=== PATIENT | male | born 1995 | race Caucasian/White ===

== ENCOUNTER 2016-08-28 23:26 | Emergency (ER) | payer OTHER, BC ==
[~2016-08-28] VITALS: Ht 177.8 cm; Wt 100.5 kg
[2016-08-28 23:30] VITALS: Ht 177.8 cm; Wt 100.5 kg
[2016-08-28] MEDS ORDERED: SOD CHLORIDE 0.9% 1,000 ML IV STA (23:56)
[2016-08-28] MEDS ORDERED: ONDANSETRON 4 MG INJ IV STA (23:56)
[2016-08-28] MEDS ORDERED: morphine 4 MG/ML VIAL IV STA (23:56)
[2016-08-29] MEDS ORDERED: MAGN296S40 PO (00:10)
--- NOTE | 2016-08-29 00:11 | ERD ---
ER Documentation Chief Complaint Date/Time DATE: 08/29/16 TIME: 00:08 Chief Complaint constipation x 4 days, rectal pain HPI 21-year-old male presents here in emergency department for complaints of constipation for the last 5 days, patient has had rectal pain for the last one month after falling in the coccyx area, states that he did not mind it, continues to have the pain, in the last 5 days, pain is worse, has been constipated, has not had a bowel movement for the last 4 days, patient was seen at another emergency department, had x-rays of the coccyx done, was told to not have any fracture. Patient was given medication, magnesium citrate to help with symptoms but it did not help. Patient's complaining of rectal pain throbbing pain, 8/10 scale, is worse upon sitting down and touching the area. Patient denies any fever or chills. Patient denies any discharge coming from the area. Patient feels a bump in the rectal area. ROS All systems reviewed and are negative except as per history of present illness. Medications Home Meds Active Scripts Polyethylene Glycol* (Miralax*) 17 Gm Powd.pack, 17 GM PO DAILY, #7 Prov:SENAIT BAL NP 08/29/16 Ibuprofen* (Motrin*) 600 Mg Tab, 600 MG PO Q6H Y for PAIN AND OR ELEVATED TEMP, #30 TAB Prov:SENAIT BAL [employer] 08/29/16 Tramadol HCl (Tramadol HCl) 50 Mg Tablet, 50 MG PO Q6, #20 TAB Prov:SENAIT BAL [employer] 08/29/16 Sulfamethoxazole-Trimethoprim* (Bactrim* DS) 800-160 Mg Tab, 1 TAB PO BID for 10 Days, TAB Prov:SENAIT BAL [employer] 08/29/16 Cephalexin* (Keflex*) 500 Mg Capsule, 500 MG PO QID for 10 Days, CAP Prov:SENAIT BAL [employer] 08/29/16 Reported Medications Magnesium Citrate* (Magnesium Citrate*) Unknown Strength Solution, PO ONCE, #1 BOTTLE 08/29/16 Allergies Allergies: Coded Allergies: No Known Allergy (Unverified , 07/24/14) PMhx/Soc Medical and Surgical Hx: pt denies Medical Hx History of Surgery: Yes (RIGHT TORSION CORRECTION 2014) Anesthesia Reaction: No Hx Neurological Disorder: No Hx Respiratory Disorders: No Hx Cardiac Disorders: No Hx Psychiatric Problems: No Hx Miscellaneous Medical Probl: No Hx Alcohol Use: No Hx Substance Use: No Hx Tobacco Use: No Smoking Status: Never smoker FmHx Family History: No coronary disease, No diabetes, No other Physical Exam Vitals Vital Signs Date Time Temp Pulse Resp B/P Pulse Ox O2 Delivery O2 Flow Rate FiO2 08/28/16 23:30 99.0 88 20 143/79 100 Physical Exam GENERAL: The patient is well developed and appropriate for usual state of health, in no apparent distress. CHEST: Clear to auscultation bilaterally. There are no rales, wheezes or rhonchi. HEART: Regular rate and rhythm. No murmurs, clicks, rubs or gallops. No S3 or S4. ABDOMEN: Soft, nontender and nondistended. Good bowel sounds. No rebound or guarding. No gross peritonitis. No gross organomegaly or masses. No Longoria sign or McBurney point tenderness. BACK: No midline or flank tenderness. EXTREMITIES: Equal pulses bilaterally. There is no peripheral clubbing, cyanosis or edema. No focal swelling or erythema. Full range of motion. Grossly neurovascularly intact. NEURO: Alert and oriented. Cranial nerves 2-12 intact. Motor strength in all 4 extremities with 5/5 strength. Sensation grossly intact. Normal speech and gait. SKIN: There is no apparent rash or petechia. The skin is warm and dry. HEMATOLOGIC AND LYMPHATIC: There is no evidence of excessive bruising or lymphedema. No gross cervical, axillary, or inguinal lymphadenopathy. : Noted fluctuant erythematous swollen area and the 11:00 of the perirectal area, tender on palpation, warm to touch. Good rectal tone. No open wounds noted. Result Diagram: 08/28/16 0018 08/28/16 0018 Results 24 hrs Laboratory Tests Test 08/28/16 00:04 08/28/16 00:18 Urine Color LT. YELLOW Urine Clarity CLEAR Urine pH 6.0 Urine Specific [place] 1.020 Urine Ketones 40 Urine Nitrite NEGATIVE Urine Bilirubin NEGATIVE Urine Urobilinogen 0.2 E.U./dL Urine Leukocyte Esterase NEGATIVE Urine Hemoglobin NEGATIVE Urine Glucose NEGATIVE% Urine Total Protein NEGATIVE White Blood Count 11.110^3/ul Red Blood Count 5.2310^6/ul Hemoglobin 15.1g/dl Hematocrit 43.9% Mean Corpuscular Volume 83.9fl Mean Corpuscular Hemoglobin 28.9pg Mean Corpuscular Hemoglobin Concent 34.4g/dl Red Cell Distribution Width 11.7% Platelet Count 16766^3/UL Mean Platelet Volume 10.0fl Neutrophils % 82.9% Lymphocytes % 9.2% Monocytes % 7.2% Eosinophils % 0.2% Basophils % 0.2% Nucleated Red Blood Cells % 0.0/100WBC Neutrophils # 9.210^3/ul Lymphocytes # 1.010^3/ul Monocytes # 0.810^3/ul Eosinophils # 0.010^3/ul Basophils # 0.010^3/ul Nucleated Red Blood Cells # 0.010^3/ul Sodium Level 138mmol/L Potassium Level 4.0mmol/L Chloride Level 98mmol/L Carbon Dioxide Level 29mmol/L Anion Gap 15 Blood Urea Nitrogen 12mg/dl Creatinine 0.75mg/dl Glucose Level 122mg/dl Calcium Level 9.8mg/dl Total Bilirubin 1.2mg/dl Direct Bilirubin 0.00mg/dl Indirect Bilirubin 1.2mg/dl Aspartate Amino Transf (AST/SGOT) 23IU/L Alanine Aminotransferase (ALT/SGPT) 20IU/L Alkaline Phosphatase 94IU/L Total Protein 9.1g/dl Albumin 4.9g/dl Globulin 4.20g/dl Albumin/Globulin Ratio 1.16 Lipase 32U/L Current Medications Medications (Trade) Dose Ordered Sig/Sinan Route PRN Reason Start Time Stop Time Status Last Admin Dose Admin Sodium Chloride (NS) 1,000 ml @ 1,000 mls/hr Q1H STAT IV 08/28/16 23:56 08/29/16 00:55 DC 08/29/16 00:30 Morphine Sulfate (morphine) 4 mg ONCE STAT IV 08/28/16 23:56 08/28/16 23:58 DC 08/29/16 00:35 Ondansetron HCl 4 mg 4 mg ONCE STAT IV 08/28/16 23:56 08/28/16 23:58 DC 08/29/16 00:30 Sodium Chloride (NS) 100 ml @ ud STK-MED ONCE .ROUTE 08/29/16 00:56 08/29/16 00:57 DC 08/29/16 01:17 Iohexol (Omnipaque 300mg/ ml) 150 ml STK-MED ONCE .ROUTE 08/29/16 00:56 08/29/16 00:57 DC 08/29/16 01:16 Hydromorphone HCl (Dilaudid) 1 mg ONCE STAT IV 08/29/16 01:41 08/29/16 01:42 DC 08/29/16 01:55 Lidocaine (Xylocaine 1% (Mdv) 20 ml) 3 ml ONCE ONCE SC 08/29/16 02:00 08/29/16 02:01 DC 08/29/16 02:08 Patient was given medication for pain here in emergency department, after treatment, patient verbalized feeling much better. Patient's pain is improved. Patient was given Zofran here in the emergency department. After treatment, patient was able to tolerate po fluids here in the emergency department without any vomiting. There is no signs and symptoms of dehydration. Normal saline IV bolus was given here in emergency department for rehydration, patient tolerated IV fluids. PROCEDURE: CT abdomen and pelvis with intravenous contrast. CLINICAL INDICATION: Rectal pain. TECHNIQUE: CT of the abdomen/pelvis was performed utilizing axial images with reconstructions in sagittal and coronal planes after uneventful administration of 100 cc Omnipaque 300. The administered radiation dose is CTDI 17 mGy, DLP 1181 mGy-cm. COMPARISON: No pertinent prior examinations were submitted for comparison. FINDINGS: Visualized Chest: The visualized lung bases are clear. Abdomen: The liver, spleen, pancreas, gallbladder,and adrenal glands are unremarkable. The kidneys are without hydronephrosis. No definite urinary calculi are seen. There is no evidence of bowel obstruction. The appendix is normal. No intra- abdominal free air is seen. There is no evidence of intra-abdominal adenopathy or free fluid. Pelvis: There is no evidence of pelvic adenopathy or free fluid. The prostate and bladder are unremarkable. There is a 2.1 x 3.6 cm collection or mass within the medial folds superficially on the left with some mild surrounding inflammatory changes and peripheral enhancement. No definite abnormalities extend into the perirectal space. Osseous structures: Unremarkable. IMPRESSION: Probable abscess, phlegmon or less likely mass within the gluteal fold on the left. RPTAT: HIKT .Crow Godoy MD, MD Date Time Electronically viewed and signed by .Crow Goody MD, on 08/29/2016 01:43 .T/ CC: SENAIT BAL [employer] I discussed patient's CT scan abdomen and pelvis results with my attending physician, Dr. Castro, patient has an abscess, as per discussion with him, he said it is appropriate that I can do the incision and drainage can be appropriate since the abscess is superficial and does not affect the Procedures/MDM Procedure Note: After obtaining informed consent, the wound was irrigated with 250 ml of normal saline and cleaned with diluted betadine. Using aseptic technique, 3 ml of 1% lidocaine was injected on the subcutaneous tissue of the abscess where the fluctuant area is at. After the anesthetic, a 2 cm incision was done in the middle of the fluctuant area of the abscess. Pustular discharge was drained from the abscess. The abscess wound was loosely packed with iodoform dressing. After the procedure, dry dressing was applied on the area. Patient tolerated procedure well. Medical decision making: Patient's symptoms most active consistent with a perianal abscess, incision and drainage was done, tolerated procedure well. Patient was given prescription for Bactrim, Keflex, ibuprofen and tramadol, patient is advised to return in 3 days for reevaluation of symptoms and changing of dressing. No symptoms of any perirectal abscess or tracking, no fistula noted. Palpation management is appropriate at this time, I discussed this case with my attending physician, Dr. Castro, agrees with outpatient management with strict return to ER precautions for any sepsis or any worsening symptoms, patient was advised to return sooner for any worsening symptoms, return to emergency department in 3 days for reevaluation of symptoms and changing of dressing. Patient will also given MiraLAX to help with constipation Departure Diagnosis: Primary Impression: Perianal abscess Condition: Stable Patient Instructions: Abscess, Incision And Drainage Additional Instructions: Patient was given prescription for Bactrim, Keflex, ibuprofen and tramadol, patient is advised to return in 3 days for reevaluation of symptoms and changing of dressing. SENAIT BAL NP Aug 29, 2016 00:11
[2016-08-29 00:32] LABS: ADD SCAN DIFF NO
[2016-08-29 00:38] LABS: BASOPHILS % 0.2 % (0.0-2.0); EOSINOPHILS % 0.2 % (0.0-7.0); HEMATOCRIT 43.9 % (42.0-52.0); HEMOGLOBIN 15.1 g/dl (14.0-18.0); LYMPHOCYTES % 9.2 % (18.0-55.0); MEAN CORPUSCULAR HEMOGLOBIN 28.9 pg (29.0-33.0); MEAN CORPUSCULAR HGB CONC 34.4 g/dl (32.0-37.0); MEAN CORPUSCULAR VOLUME 83.9 fl (72.0-104.0); MONOCYTE # 0.8 10^3/ul (0.3-0.9); MONOCYTES % 7.2 % (0.0-13.0); NEUTROPHIL # 9.2 10^3/ul (1.6-7.5); NEUTROPHILS % 82.9 % (30.0-74.0); PLATELET COUNT 270 10^3/UL (140-415); RED BLOOD COUNT 5.23 10^6/ul (4.70-6.10); RED CELL DISTRIBUTION WIDTH 11.7 % (11.5-14.5); WHITE BLOOD COUNT 11.1 10^3/ul (4.8-10.8)
[2016-08-29 00:38] LABS: ADD UMIC NO; URINE BLOOD (Dip) NEGATIVE (NEGATIVE); URINE COLOR LT. YELLOW (YELLOW); URINE GLUCOSE (Dip) NEGATIVE (NEGATIVE); URINE KETONES (Dip) 40 (NEGATIVE); URINE LEUKOCYTE ESTERASE (Dip) NEGATIVE (NEGATIVE); URINE NITRITE (Dip) NEGATIVE (NEGATIVE); URINE TOTAL PROTEIN (Dip) NEGATIVE (NEGATIVE); URINE UROBILINOGEN (Dip) 0.2 E.U./dL (0.1-1.0)
[2016-08-29 00:44] LABS: URINE BILIRUBIN (Dip) NEGATIVE (NEGATIVE)
[2016-08-29 00:48] LABS: ALBUMIN 4.9 g/dl (3.3-4.9)
[2016-08-29 00:51] LABS: ALBUMIN/GLOBULIN RATIO 1.16; BILIRUBIN,INDIRECT 1.2 mg/dl (0-1.1); BILIRUBIN,TOTAL 1.2 mg/dl (0.2-1.3); CREATININE 0.75 mg/dl (0.61-1.24); TOTAL PROTEIN 9.1 g/dl (6.1-8.1)
[2016-08-29 00:52] LABS: CALCIUM 9.8 mg/dl (8.4-10.2)
[2016-08-29] MEDS ORDERED: SOD CHLORIDE 0.9% 100 ML ONE (00:56)
[2016-08-29] MEDS ORDERED: IOHEXOL 300MG/ML 150 ML BTL ONE (00:56)
[2016-08-29] MEDS ORDERED: HYDROmorphONE 1 MG/ML SYG IV STA (01:41)
--- NOTE | 2016-08-29 01:44 | RADRPT ---
PROCEDURE: CT abdomen and pelvis with intravenous contrast. CLINICAL INDICATION: Rectal pain. TECHNIQUE: CT of the abdomen/pelvis was performed utilizing axial images with reconstructions in s agittal and coronal planes after uneventful administration of 100 cc Omnipaque 300. The administered radiation dose is CTDI 17 mGy, DLP 1181 mGy-cm. COMPARISON: No pertinent prior examinations were submitted for comparison. FINDINGS: Visualized Chest: The visualized lung bases are clear. Abdomen: The liver, spleen, pancreas, gallbladder,and adrenal glands are unremarkable. The kidneys are without hydronephrosis. No definite urinary calculi are seen. There is no evidence of bowel obstruction. The appendix is normal. No intra-abdominal free air is seen. There is no evidence of intra-abdominal adenopathy or free fluid. Pelvis: There is no evidence of pelvic adenopathy or free fluid. The prostate and bladder are unremarkable. There is a 2.1 x 3.6 cm collection or mass within the medial folds superficially on the left with so me mild surrounding inflammatory changes and peripheral enhancement. No definite abnormalities exte nd into the perirectal space. Osseous structures: Unremarkable. IMPRESSION: Probable abscess, phlegmon or less likely mass within the gluteal fold on the left. RPTAT: HIKT .Crow Godoy MD, MD Date Time Electronically viewed and signed by .Crow Godoy MD, on 08/29/2016 01:43 .T/
[2016-08-29] MEDS ORDERED: LIDOCAINE 1% (MDV) 20 ML INJ SC ONE (02:00)
[2016-08-29] MEDS ORDERED: TRAM50TA2 PO (02:31)
[2016-08-29] MEDS ORDERED: POLY17PO6 PO (02:31)
[2016-08-29] MEDS ORDERED: IBUP-1542 PO (02:31)
[2016-08-29] MEDS ORDERED: CEPH-443 PO (02:31)
[2016-08-29] MEDS ORDERED: BACTDS PO (02:31)
[2016-08-29 02:56] VITALS: BP 143/74; PULSE 84; RESP 20; TEMP 98.7
== END 2016-08-29 02:56 | disposition home or self-care (01) ==
LOC: FTE 23:26
DX: K61.0 Anal abscess (principal)
CPT/HCPCS: 36415; 46050; 74177; 80053; 81003; 83690; 85025; 87040; 96374; 96375; 99285; J1170; J2270; J2405; J7030; Q9967

== ENCOUNTER 2017-04-07 13:05 | Emergency (ER) | payer OTHER, BC ==
[~2017-04-07] VITALS: Ht 165.1 cm; Wt 102.0 kg
[~2017-04-07 13:05] MED LIST: BACTDS PO; CEPH-443 PO; IBUP-1542 PO; MAGN296S40 PO; POLY17PO6 PO; TRAM50TA2 PO
[2017-04-07 13:10] VITALS: Ht 165.1 cm; Wt 102.0 kg
[2017-04-07] MEDS ORDERED: LIDOCAINE 2% (MDV) 20 ML INJ INJ ONE (14:00)
[2017-04-07] MEDS ORDERED: morphine 4 MG/ML VIAL IM STA (14:09)
[2017-04-07] MEDS ORDERED: SULF1TAB31 PO (14:32)
[2017-04-07] MEDS ORDERED: CEPH-443 PO (14:33)
--- NOTE | 2017-04-07 15:15 | ERD ---
ER Documentation Chief Complaint Chief Complaint Complains of right buttock abscess HPI This is a 22-year-old male presents to the ER for an abscess above his anus. Patient states he had this in the past, and it was drained which fix the problem. Patient denies any fevers or chills. He states that he noticed a small bump yesterday, and he is worried about the bug getting any bigger. Denies any rectal pain. He is having normal bowel movements. Has any melena. He denies any nausea or vomiting. ROS 12 point review of systems was done, all negative except per HPI. Medications Home Meds Active Scripts Cephalexin* (Keflex*) 500 Mg Capsule, 500 MG PO BID for 7 Days, CAP Prov:MARK WAYNE 04/07/17 Sulfamethoxazole/Trimethoprim* (Bactrim Ds* Tablet) 1 Each Tablet, 1 TAB PO BID for 7 Days, #14 TAB Prov:MARK WAYNE 04/07/17 Polyethylene Glycol* (Miralax*) 17 Gm Powd.pack, 17 GM PO DAILY, #7 Prov:SENAIT BAL TIRE REPAIRER 08/29/16 Ibuprofen* (Motrin*) 600 Mg Tab, 600 MG PO Q6H Y for PAIN AND OR ELEVATED TEMP, #30 TAB Prov:SENAIT BAL TIRE REPAIRER 08/29/16 Tramadol HCl (Tramadol HCl) 50 Mg Tablet, 50 MG PO Q6, #20 TAB Prov:SENAIT BAL TIRE REPAIRER 08/29/16 Sulfamethoxazole-Trimethoprim* (Bactrim* DS) 800-160 Mg Tab, 1 TAB PO BID for 10 Days, TAB Prov:SENAIT BAL TI[employer] REPAIRER 08/29/16 Cephalexin* (Keflex*) 500 Mg Capsule, 500 MG PO QID for 10 Days, CAP Prov:SENAIT BAL TI[employer] REPAIRER 08/29/16 Reported Medications Magnesium Citrate* (Magnesium Citrate*) Unknown Strength Solution, PO ONCE, #1 BOTTLE 08/29/16 Allergies Allergies: Coded Allergies: No Known Allergy (Unverified , 07/24/14) PMhx/Soc History of Surgery: Yes (RIGHT TORSION CORRECTION 2013) Anesthesia Reaction: No Hx Neurological Disorder: No Hx Respiratory Disorders: No Hx Cardiac Disorders: No Hx Psychiatric Problems: No Hx Miscellaneous Medical Probl: No Hx Alcohol Use: No Hx Substance Use: Yes (MARIJUANA) Hx Tobacco Use: No Smoking Status: Never smoker Physical Exam Vitals Vital Signs Date Time Temp Pulse Resp B/P Pulse Ox O2 Delivery O2 Flow Rate FiO2 04/07/17 13:10 97.1 88 20 147/68 96 Physical Exam GENERAL: The patient is well developed and appropriate for usual state of health , in no apparent distress. HEENT: Atraumatic. CHEST: Clear to auscultation bilaterally. There are no rales, wheezes or rhonchi. HEART: Regular rate and rhythm. No murmurs, clicks, rubs or gallops. ABDOMEN: Soft, nontender and nondistended. Good bowel sounds. No rebound or guarding. No gross peritonitis. No gross organomegaly or masses. No Longoria sign or McBurney point tenderness. NEURO: Alert and oriented. SKIN: There is a 2cm* 2cm fluctuant area above the anus. Results 24 hrs Current Medications Medications (Trade) Dose Ordered Sig/Sinan Route PRN Reason Start Time Stop Time Status Last Admin Dose Admin Lidocaine (Xylocaine 2% (Mdv) 20 ml) 20 ml ONCE ONCE INJ 04/07/17 14:00 04/07/17 14:01 DC Morphine Sulfate (morphine) 4 mg ONCE STAT IM 04/07/17 14:09 04/07/17 14:10 DC 04/07/17 14:18 Procedures/MDM Abscess Incision and Drainage with irrigation by me: Location: buttock Anesthesia: 2% lidocaine Technique: Irrigated. Disrupted loculations w/ instrumentation , copious amounts of purulent discharge was expressed Packin/4 inch iodoform Complications: Neurovascularly intact post procedure 48 hour wound check. Scar minimization instructions given. Patient's skin symptoms have stabilized while they have been evaluated in the department and are appropriate for outpatient care and work up. Patient will be sent home with Keflex and Bactrim. Exam and w/u not consistent w/ sepsis, deep space infection, or foreign body. Departure Diagnosis: Primary Impression: Acute abscess Condition: Stable Patient Instructions: Abscess Drainage Additional Instructions: Return to this facility in 2 DAYS for a follow-up exam.Return sooner if your condition worsens. MARK WAYNE Apr 07, 2017 15:14
--- NOTE | 2017-04-07 15:15 | ERD ---
ER Documentation Chief Complaint Chief Complaint Complains of right buttock abscess HPI This is a 22-year-old male presents to the ER for an abscess above his anus. Patient states he had this in the past, and it was drained which fix the problem. Patient denies any fevers or chills. He states that he noticed a small bump yesterday, and he is worried about the bug getting any bigger. Denies any rectal pain. He is having normal bowel movements. Has any melena. He denies any nausea or vomiting. ROS 12 point review of systems was done, all negative except per HPI. Medications Home Meds Active Scripts Cephalexin* (Keflex*) 500 Mg Capsule, 500 MG PO BID for 7 Days, CAP Prov:MARK WAYNE 04/07/17 Sulfamethoxazole/Trimethoprim* (Bactrim Ds* Tablet) 1 Each Tablet, 1 TAB PO BID for 7 Days, #14 TAB Prov:MARK WAYNE 04/07/17 Polyethylene Glycol* (Miralax*) 17 Gm Powd.pack, 17 GM PO DAILY, #7 Prov:SENAIT BAL HANDLE FINISHER 08/29/16 Ibuprofen* (Motrin*) 600 Mg Tab, 600 MG PO Q6H Y for PAIN AND OR ELEVATED TEMP, #30 TAB Prov:SENAIT BAL [employer]LE FINISHER 08/29/16 Tramadol HCl (Tramadol HCl) 50 Mg Tablet, 50 MG PO Q6, #20 TAB Prov:SENAIT BAL [employer]LE FINISHER 08/29/16 Sulfamethoxazole-Trimethoprim* (Bactrim* DS) 800-160 Mg Tab, 1 TAB PO BID for 10 Days, TAB Prov:SENAIT BAL [employer]LE FINISHER 08/29/16 Cephalexin* (Keflex*) 500 Mg Capsule, 500 MG PO QID for 10 Days, CAP Prov:SENAIT BAL [employer] FINISHER 08/29/16 Reported Medications Magnesium Citrate* (Magnesium Citrate*) Unknown Strength Solution, PO ONCE, #1 BOTTLE 08/29/16 Allergies Allergies: Coded Allergies: No Known Allergy (Unverified , 07/24/14) PMhx/Soc History of Surgery: Yes (RIGHT TORSION CORRECTION 2013) Anesthesia Reaction: No Hx Neurological Disorder: No Hx Respiratory Disorders: No Hx Cardiac Disorders: No Hx Psychiatric Problems: No Hx Miscellaneous Medical Probl: No Hx Alcohol Use: No Hx Substance Use: Yes (MARIJUANA) Hx Tobacco Use: No Smoking Status: Never smoker Physical Exam Vitals Vital Signs Date Time Temp Pulse Resp B/P Pulse Ox O2 Delivery O2 Flow Rate FiO2 04/07/17 13:10 97.1 88 20 147/68 96 Physical Exam GENERAL: The patient is well developed and appropriate for usual state of health , in no apparent distress. HEENT: Atraumatic. CHEST: Clear to auscultation bilaterally. There are no rales, wheezes or rhonchi. HEART: Regular rate and rhythm. No murmurs, clicks, rubs or gallops. ABDOMEN: Soft, nontender and nondistended. Good bowel sounds. No rebound or guarding. No gross peritonitis. No gross organomegaly or masses. No Longoria sign or McBurney point tenderness. NEURO: Alert and oriented. SKIN: There is a 2cm* 2cm fluctuant area above the anus. Results 24 hrs Current Medications Medications (Trade) Dose Ordered Sig/Sinan Route PRN Reason Start Time Stop Time Status Last Admin Dose Admin Lidocaine (Xylocaine 2% (Mdv) 20 ml) 20 ml ONCE ONCE INJ 04/07/17 14:00 04/07/17 14:01 DC Morphine Sulfate (morphine) 4 mg ONCE STAT IM 04/07/17 14:09 04/07/17 14:10 DC 04/07/17 14:18 Procedures/MDM Abscess Incision and Drainage with irrigation by me: Location: buttock Anesthesia: 2% lidocaine Technique: Irrigated. Disrupted loculations w/ instrumentation , copious amounts of purulent discharge was expressed Packin/4 inch iodoform Complications: Neurovascularly intact post procedure 48 hour wound check. Scar minimization instructions given. Patient's skin symptoms have stabilized while they have been evaluated in the department and are appropriate for outpatient care and work up. Patient will be sent home with Keflex and Bactrim. Exam and w/u not consistent w/ sepsis, deep space infection, or foreign body. Departure Diagnosis: Primary Impression: Acute abscess Condition: Stable Patient Instructions: Abscess Drainage Additional Instructions: Return to this facility in 2 DAYS for a follow-up exam.Return sooner if your condition worsens. MARK WAYNE Apr 07, 2017 15:14
--- NOTE | 2017-04-07 15:15 | ERD ---
ER Documentation Chief Complaint Chief Complaint Complains of right buttock abscess HPI This is a 22-year-old male presents to the ER for an abscess above his anus. Patient states he had this in the past, and it was drained which fix the problem. Patient denies any fevers or chills. He states that he noticed a small bump yesterday, and he is worried about the bug getting any bigger. Denies any rectal pain. He is having normal bowel movements. Has any melena. He denies any nausea or vomiting. ROS 12 point review of systems was done, all negative except per HPI. Medications Home Meds Active Scripts Cephalexin* (Keflex*) 500 Mg Capsule, 500 MG PO BID for 7 Days, CAP Prov:MARK WAYNE 04/07/17 Sulfamethoxazole/Trimethoprim* (Bactrim Ds* Tablet) 1 Each Tablet, 1 TAB PO BID for 7 Days, #14 TAB Prov:MARK WAYNE 04/07/17 Polyethylene Glycol* (Miralax*) 17 Gm Powd.pack, 17 GM PO DAILY, #7 Prov:SENAIT BAL [employer]TAIN 08/29/16 Ibuprofen* (Motrin*) 600 Mg Tab, 600 MG PO Q6H Y for PAIN AND OR ELEVATED TEMP, #30 TAB Prov:SENAIT BAL [employer]TAIN 08/29/16 Tramadol HCl (Tramadol HCl) 50 Mg Tablet, 50 MG PO Q6, #20 TAB Prov:SENAIT BAL [employer] CAPTAIN 08/29/16 Sulfamethoxazole-Trimethoprim* (Bactrim* DS) 800-160 Mg Tab, 1 TAB PO BID for 10 Days, TAB Prov:SENAIT BAL [employer]TAIN 08/29/16 Cephalexin* (Keflex*) 500 Mg Capsule, 500 MG PO QID for 10 Days, CAP Prov:SENAIT BAL [employer]TAIN 08/29/16 Reported Medications Magnesium Citrate* (Magnesium Citrate*) Unknown Strength Solution, PO ONCE, #1 BOTTLE 08/29/16 Allergies Allergies: Coded Allergies: No Known Allergy (Unverified , 07/24/14) PMhx/Soc History of Surgery: Yes (RIGHT TORSION CORRECTION 2013) Anesthesia Reaction: No Hx Neurological Disorder: No Hx Respiratory Disorders: No Hx Cardiac Disorders: No Hx Psychiatric Problems: No Hx Miscellaneous Medical Probl: No Hx Alcohol Use: No Hx Substance Use: Yes (MARIJUANA) Hx Tobacco Use: No Smoking Status: Never smoker Physical Exam Vitals Vital Signs Date Time Temp Pulse Resp B/P Pulse Ox O2 Delivery O2 Flow Rate FiO2 04/07/17 13:10 97.1 88 20 147/68 96 Physical Exam GENERAL: The patient is well developed and appropriate for usual state of health , in no apparent distress. HEENT: Atraumatic. CHEST: Clear to auscultation bilaterally. There are no rales, wheezes or rhonchi. HEART: Regular rate and rhythm. No murmurs, clicks, rubs or gallops. ABDOMEN: Soft, nontender and nondistended. Good bowel sounds. No rebound or guarding. No gross peritonitis. No gross organomegaly or masses. No Longoria sign or McBurney point tenderness. NEURO: Alert and oriented. SKIN: There is a 2cm* 2cm fluctuant area above the anus. Results 24 hrs Current Medications Medications (Trade) Dose Ordered Sig/Sinan Route PRN Reason Start Time Stop Time Status Last Admin Dose Admin Lidocaine (Xylocaine 2% (Mdv) 20 ml) 20 ml ONCE ONCE INJ 04/07/17 14:00 04/07/17 14:01 DC Morphine Sulfate (morphine) 4 mg ONCE STAT IM 04/07/17 14:09 04/07/17 14:10 DC 04/07/17 14:18 Procedures/MDM Abscess Incision and Drainage with irrigation by me: Location: buttock Anesthesia: 2% lidocaine Technique: Irrigated. Disrupted loculations w/ instrumentation , copious amounts of purulent discharge was expressed Packin/4 inch iodoform Complications: Neurovascularly intact post procedure 48 hour wound check. Scar minimization instructions given. Patient's skin symptoms have stabilized while they have been evaluated in the department and are appropriate for outpatient care and work up. Patient will be sent home with Keflex and Bactrim. Exam and w/u not consistent w/ sepsis, deep space infection, or foreign body. Departure Diagnosis: Primary Impression: Acute abscess Condition: Stable Patient Instructions: Abscess Drainage Additional Instructions: Return to this facility in 2 DAYS for a follow-up exam.Return sooner if your condition worsens. MARK WAYNE Apr 07, 2017 15:14
[2017-04-08] MEDS ORDERED: TRAM50TA2 PO (06:35)
[2017-04-08] MEDS ORDERED: HYDR-902 PO (06:35)
== END 2017-04-07 14:47 | disposition home or self-care (01) ==
LOC: FTE 13:05
DX: L02.31 Cutaneous abscess of buttock (principal)
CPT/HCPCS: 10061; 96372; 99284; J2270

== ENCOUNTER 2017-04-08 02:58 | Emergency (ER) | payer OTHER, BC ==
[~2017-04-08] VITALS: Ht 175.3 cm; Wt 101.0 kg
[~2017-04-08 02:58] MED LIST changes: +SULF1TAB31 PO
[2017-04-08 03:17] VITALS: Ht 175.3 cm; Wt 101.0 kg
[2017-04-08] MEDS ORDERED: KETOROLAC 15 MG INJ IM STA (05:12)
--- NOTE | 2017-04-08 05:12 | ERD ---
ER Documentation Chief Complaint Chief Complaint recheck abscess on coccyx area, was here yesterday for same HPI This is a 22-year-old male presents to the ER to have rectal abscess assessed, s/p I+D yesterday. pt reports pain is not controlled difficulty sitting and walking , pt was srny home on 2 ABX, pt reports that he has started medication as prescribed he had this in the past, Patient denies any ROS All systems reviewed and are negative except as per history of present illness. Medications Home Meds Active Scripts Hydrocodone/Acetaminophen ([place] 10-325 Tablet) 1 Each Tablet, 1 TAB PO Q6H Y for PAIN, #7 TAB Prov:MARI,RICKEY 04/08/17 Tramadol HCl (Tramadol HCl) 50 Mg Tablet, 50 MG PO Q4 Y for PAIN, #20 TAB Prov:MARI,RICKEY 04/08/17 Cephalexin* (Keflex*) 500 Mg Capsule, 500 MG PO BID for 7 Days, CAP Prov:MARK WAYNE C 04/07/17 Sulfamethoxazole/Trimethoprim* (Bactrim Ds* Tablet) 1 Each Tablet, 1 TAB PO BID for 7 Days, #14 TAB Prov:MARK WAYNE C 04/07/17 Polyethylene Glycol* (Miralax*) 17 Gm Powd.pack, 17 GM PO DAILY, #7 Prov:SENAIT BAL E COMMERCE MARKETING MANAGER 08/29/16 Ibuprofen* (Motrin*) 600 Mg Tab, 600 MG PO Q6H Y for PAIN AND OR ELEVATED TEMP, #30 TAB Prov:SENAIT BAL E [employer]ER[employer] MARKETING MANAGER 08/29/16 Tramadol HCl (Tramadol HCl) 50 Mg Tablet, 50 MG PO Q6, #20 TAB Prov:SENAIT BAL E [employer]ER[employer] MARKETING MANAGER 08/29/16 Sulfamethoxazole-Trimethoprim* (Bactrim* DS) 800-160 Mg Tab, 1 TAB PO BID for 10 Days, TAB Prov:SENAIT BAL E COMMERCE MARKETING MANAGER 08/29/16 Cephalexin* (Keflex*) 500 Mg Capsule, 500 MG PO QID for 10 Days, CAP Prov:SENAIT BAL E [employer]ER[employer] MARKETING MANAGER 08/29/16 Reported Medications Magnesium Citrate* (Magnesium Citrate*) Unknown Strength Solution, PO ONCE, #1 BOTTLE 08/29/16 Allergies Allergies: Coded Allergies: No Known Allergy (Unverified , 07/24/14) PMhx/Soc History of Surgery: Yes (testicular torsion) Anesthesia Reaction: No Hx Neurological Disorder: No Hx Respiratory Disorders: No Hx Cardiac Disorders: No Hx Psychiatric Problems: No Hx Miscellaneous Medical Probl: No Hx Alcohol Use: No Hx Substance Use: No Hx Tobacco Use: No Smoking Status: Never smoker Physical Exam Vitals Vital Signs Date Time Temp Pulse Resp B/P Pulse Ox O2 Delivery O2 Flow Rate FiO2 04/08/17 03:17 99.6 125 20 123/86 97 Vitals stable, triage notes reviewed Physical Exam Const: Well-nourished well-hydrated 22-year-old male patient obvious discomfort no acute distress Head: Eyes: ENT: Neck: Resp: Cardio: Abd: Skin: Left buttocks perianal abscess packing removed, wound actively bleeding no purulent discharge, abscess status post I&D soft to touch, hypersensitive. Packing was not replaced. Back: No midline or flank tenderness Ext: No cyanosis, or edema Neur: Awake and alert Psych: Normal Mood and Affect Results 24 hrs Current Medications Medications (Trade) Dose Ordered Sig/Sinan Route PRN Reason Start Time Stop Time Status Last Admin Dose Admin Ketorolac Tromethamine (Toradol) 15 mg ONCE STAT IM 04/08/17 05:12 04/08/17 05:15 DC 04/08/17 05:37 Acetaminophen/ Hydrocodone Bitart ([place] (5/325)) 2 tab ONCE ONCE PO 04/08/17 05:30 04/08/17 05:31 DC 04/08/17 05:37 Ceftriaxone Sodium (Rocephin) 1 gm ONCE ONCE IM 04/08/17 05:30 04/08/17 05:31 DC 04/08/17 05:37 Procedures/MDM This 22-year-old male patient presents to emergency department for reevaluation of rectal abscess, patient status post incision and drainage earlier today was sent home with Keflex and Bactrim taking medication as prescribed, patient reports pain is severe, and tolerable, patient is having difficulty ambulating, sitting. Upon examination. Packing is dry, removed, patient with improvement after packing removed. Wound is draining bright red blood, no purulent discharge, plan to treat patient with 1 g of Rocephin, 15 mg of Toradol, and [place] 10 mg. Patient reassessed after interventions complete, new wound dressing applied, patient reports improvement of symptoms will be discharged home with tramadol 50 mg, and [place] 10/325 count of 7. Return to emergency department for wound reevaluation and 24 hours, take all medication as prescribed. Increase fluids, increase rest. Patient is stable with no new complaints during ER course, clinically there is no current evidence to suggest meningitis, sepsis, acute abdomen, acute coronary syndromes, pulmonary embolism or any other emergent condition appearing to require further evaluation or hospitalization. I feel the patient is stable for discharge at this time. I have discussed results, examination findings, the treatment plan with the patient and family present prior to discharge. Indications for emergent reevaluation, side effects of medication were also discussed. All questions were answered. Patient verbalizes understanding and agrees with plan of care. Departure Diagnosis: Primary Impression: Anal abscess Additional Impression: Follow up Condition: Good [place]: [facility] [place] Apr 08, 2017 05:12
--- NOTE | 2017-04-08 05:12 | ERD ---
ER Documentation Chief Complaint Chief Complaint recheck abscess on coccyx area, was here yesterday for same HPI This is a 22-year-old male presents to the ER to have rectal abscess assessed, s/p I+D yesterday. pt reports pain is not controlled difficulty sitting and walking , pt was srny home on 2 ABX, pt reports that he has started medication as prescribed he had this in the past, Patient denies any ROS All systems reviewed and are negative except as per history of present illness. Medications Home Meds Active Scripts Hydrocodone/Acetaminophen ([place] 10-325 Tablet) 1 Each Tablet, 1 TAB PO Q6H Y for PAIN, #7 TAB Prov:MARI,RICKEY 04/08/17 Tramadol HCl (Tramadol HCl) 50 Mg Tablet, 50 MG PO Q4 Y for PAIN, #20 TAB Prov:MARI,RICKEY 04/08/17 Cephalexin* (Keflex*) 500 Mg Capsule, 500 MG PO BID for 7 Days, CAP Prov:MARK WAYNE C 04/07/17 Sulfamethoxazole/Trimethoprim* (Bactrim Ds* Tablet) 1 Each Tablet, 1 TAB PO BID for 7 Days, #14 TAB Prov:MARK WAYNE C 04/07/17 Polyethylene Glycol* (Miralax*) 17 Gm Powd.pack, 17 GM PO DAILY, #7 Prov:SENAIT BAL RADIO DIVISION LIEUTENANT 08/29/16 Ibuprofen* (Motrin*) 600 Mg Tab, 600 MG PO Q6H Y for PAIN AND OR ELEVATED TEMP, #30 TAB Prov:SENAIT BAL [employer] LIEUTENANT 08/29/16 Tramadol HCl (Tramadol HCl) 50 Mg Tablet, 50 MG PO Q6, #20 TAB Prov:SENAIT BAL [employer] LIEUTENANT 08/29/16 Sulfamethoxazole-Trimethoprim* (Bactrim* DS) 800-160 Mg Tab, 1 TAB PO BID for 10 Days, TAB Prov:SENAIT BAL [employer] LIEUTENANT 08/29/16 Cephalexin* (Keflex*) 500 Mg Capsule, 500 MG PO QID for 10 Days, CAP Prov:SENAIT BAL [employer] LIEUTENANT 08/29/16 Reported Medications Magnesium Citrate* (Magnesium Citrate*) Unknown Strength Solution, PO ONCE, #1 BOTTLE 08/29/16 Allergies Allergies: Coded Allergies: No Known Allergy (Unverified , 07/24/14) PMhx/Soc History of Surgery: Yes (testicular torsion) Anesthesia Reaction: No Hx Neurological Disorder: No Hx Respiratory Disorders: No Hx Cardiac Disorders: No Hx Psychiatric Problems: No Hx Miscellaneous Medical Probl: No Hx Alcohol Use: No Hx Substance Use: No Hx Tobacco Use: No Smoking Status: Never smoker Physical Exam Vitals Vital Signs Date Time Temp Pulse Resp B/P Pulse Ox O2 Delivery O2 Flow Rate FiO2 04/08/17 03:17 99.6 125 20 123/86 97 Vitals stable, triage notes reviewed Physical Exam Const: Well-nourished well-hydrated 22-year-old male patient obvious discomfort no acute distress Head: Eyes: ENT: Neck: Resp: Cardio: Abd: Skin: Left buttocks perianal abscess packing removed, wound actively bleeding no purulent discharge, abscess status post I&D soft to touch, hypersensitive. Packing was not replaced. Back: No midline or flank tenderness Ext: No cyanosis, or edema Neur: Awake and alert Psych: Normal Mood and Affect Results 24 hrs Current Medications Medications (Trade) Dose Ordered Sig/Sinan Route PRN Reason Start Time Stop Time Status Last Admin Dose Admin Ketorolac Tromethamine (Toradol) 15 mg ONCE STAT IM 04/08/17 05:12 04/08/17 05:15 DC 04/08/17 05:37 Acetaminophen/ Hydrocodone Bitart ([place] (5/325)) 2 tab ONCE ONCE PO 04/08/17 05:30 04/08/17 05:31 DC 04/08/17 05:37 Ceftriaxone Sodium (Rocephin) 1 gm ONCE ONCE IM 04/08/17 05:30 04/08/17 05:31 DC 04/08/17 05:37 Procedures/MDM This 22-year-old male patient presents to emergency department for reevaluation of rectal abscess, patient status post incision and drainage earlier today was sent home with Keflex and Bactrim taking medication as prescribed, patient reports pain is severe, and tolerable, patient is having difficulty ambulating, sitting. Upon examination. Packing is dry, removed, patient with improvement after packing removed. Wound is draining bright red blood, no purulent discharge, plan to treat patient with 1 g of Rocephin, 15 mg of Toradol, and [place] 10 mg. Patient reassessed after interventions complete, new wound dressing applied, patient reports improvement of symptoms will be discharged home with tramadol 50 mg, and [place] 10/325 count of 7. Return to emergency department for wound reevaluation and 24 hours, take all medication as prescribed. Increase fluids, increase rest. Patient is stable with no new complaints during ER course, clinically there is no current evidence to suggest meningitis, sepsis, acute abdomen, acute coronary syndromes, pulmonary embolism or any other emergent condition appearing to require further evaluation or hospitalization. I feel the patient is stable for discharge at this time. I have discussed results, examination findings, the treatment plan with the patient and family present prior to discharge. Indications for emergent reevaluation, side effects of medication were also discussed. All questions were answered. Patient verbalizes understanding and agrees with plan of care. Departure Diagnosis: Primary Impression: Anal abscess Additional Impression: Follow up Condition: Good Referrals: [facility] RICKEY GUERRA Apr 08, 2017 05:12
--- NOTE | 2017-04-08 05:12 | ERD ---
ER Documentation Chief Complaint Chief Complaint recheck abscess on coccyx area, was here yesterday for same HPI This is a 22-year-old male presents to the ER to have rectal abscess assessed, s/p I+D yesterday. pt reports pain is not controlled difficulty sitting and walking , pt was srny home on 2 ABX, pt reports that he has started medication as prescribed he had this in the past, Patient denies any ROS All systems reviewed and are negative except as per history of present illness. Medications Home Meds Active Scripts Hydrocodone/Acetaminophen ([place] 10-325 Tablet) 1 Each Tablet, 1 TAB PO Q6H Y for PAIN, #7 TAB Prov:MARI,RICKEY 04/08/17 Tramadol HCl (Tramadol HCl) 50 Mg Tablet, 50 MG PO Q4 Y for PAIN, #20 TAB Prov:MARI,RICKEY 04/08/17 Cephalexin* (Keflex*) 500 Mg Capsule, 500 MG PO BID for 7 Days, CAP Prov:MARK WAYNE C 04/07/17 Sulfamethoxazole/Trimethoprim* (Bactrim Ds* Tablet) 1 Each Tablet, 1 TAB PO BID for 7 Days, #14 TAB Prov:MARK WAYNE C 04/07/17 Polyethylene Glycol* (Miralax*) 17 Gm Powd.pack, 17 GM PO DAILY, #7 Prov:SENAIT BAL WOODWORKING MACHINE OFFBEARER 08/29/16 Ibuprofen* (Motrin*) 600 Mg Tab, 600 MG PO Q6H Y for PAIN AND OR ELEVATED TEMP, #30 TAB Prov:SENAIT BAL WOODWORKING MACHINE OFFBEARER 08/29/16 Tramadol HCl (Tramadol HCl) 50 Mg Tablet, 50 MG PO Q6, #20 TAB Prov:SENAIT BAL WOODWORKING MACHINE OFFBEARER 08/29/16 Sulfamethoxazole-Trimethoprim* (Bactrim* DS) 800-160 Mg Tab, 1 TAB PO BID for 10 Days, TAB Prov:SENAIT BAL WOODWORKING MACHINE OFFBEARER 08/29/16 Cephalexin* (Keflex*) 500 Mg Capsule, 500 MG PO QID for 10 Days, CAP Prov:SENAIT BAL WOODWORKING MACHINE OFFBEARER 08/29/16 Reported Medications Magnesium Citrate* (Magnesium Citrate*) Unknown Strength Solution, PO ONCE, #1 BOTTLE 08/29/16 Allergies Allergies: Coded Allergies: No Known Allergy (Unverified , 07/24/14) PMhx/Soc History of Surgery: Yes (testicular torsion) Anesthesia Reaction: No Hx Neurological Disorder: No Hx Respiratory Disorders: No Hx Cardiac Disorders: No Hx Psychiatric Problems: No Hx Miscellaneous Medical Probl: No Hx Alcohol Use: No Hx Substance Use: No Hx Tobacco Use: No Smoking Status: Never smoker Physical Exam Vitals Vital Signs Date Time Temp Pulse Resp B/P Pulse Ox O2 Delivery O2 Flow Rate FiO2 04/08/17 03:17 99.6 125 20 123/86 97 Vitals stable, triage notes reviewed Physical Exam Const: Well-nourished well-hydrated 22-year-old male patient obvious discomfort no acute distress Head: Eyes: ENT: Neck: Resp: Cardio: Abd: Skin: Left buttocks perianal abscess packing removed, wound actively bleeding no purulent discharge, abscess status post I&D soft to touch, hypersensitive. Packing was not replaced. Back: No midline or flank tenderness Ext: No cyanosis, or edema Neur: Awake and alert Psych: Normal Mood and Affect Results 24 hrs Current Medications Medications (Trade) Dose Ordered Sig/Sinan Route PRN Reason Start Time Stop Time Status Last Admin Dose Admin Ketorolac Tromethamine (Toradol) 15 mg ONCE STAT IM 04/08/17 05:12 04/08/17 05:15 DC 04/08/17 05:37 Acetaminophen/ Hydrocodone Bitart ([place] (5/325)) 2 tab ONCE ONCE PO 04/08/17 05:30 04/08/17 05:31 DC 04/08/17 05:37 Ceftriaxone Sodium (Rocephin) 1 gm ONCE ONCE IM 04/08/17 05:30 04/08/17 05:31 DC 04/08/17 05:37 Procedures/MDM This 22-year-old male patient presents to emergency department for reevaluation of rectal abscess, patient status post incision and drainage earlier today was sent home with Keflex and Bactrim taking medication as prescribed, patient reports pain is severe, and tolerable, patient is having difficulty ambulating, sitting. Upon examination. Packing is dry, removed, patient with improvement after packing removed. Wound is draining bright red blood, no purulent discharge, plan to treat patient with 1 g of Rocephin, 15 mg of Toradol, and [place] 10 mg. Patient reassessed after interventions complete, new wound dressing applied, patient reports improvement of symptoms will be discharged home with tramadol 50 mg, and [place] 10/325 count of 7. Return to emergency department for wound reevaluation and 24 hours, take all medication as prescribed. Increase fluids, increase rest. Patient is stable with no new complaints during ER course, clinically there is no current evidence to suggest meningitis, sepsis, acute abdomen, acute coronary syndromes, pulmonary embolism or any other emergent condition appearing to require further evaluation or hospitalization. I feel the patient is stable for discharge at this time. I have discussed results, examination findings, the treatment plan with the patient and family present prior to discharge. Indications for emergent reevaluation, side effects of medication were also discussed. All questions were answered. Patient verbalizes understanding and agrees with plan of care. Departure Diagnosis: Primary Impression: Anal abscess Additional Impression: Follow up Condition: Good Referrals: [facility] [place] GU[place] Apr 08, 2017 05:12
[2017-04-08] MEDS ORDERED: CEFTRIAXONE 1 GM INJ IM ONE (05:30)
[2017-04-08] MEDS ORDERED: HYDROCODONE/APAP (5/325) TAB PO ONE (05:30)
[2017-04-08] MEDS ORDERED: TRAM50TA2 PO (06:35)
[2017-04-08] MEDS ORDERED: HYDR-902 PO (06:35)
[2017-04-08 06:50] VITALS: BP 117/62; PULSE 102; RESP 16
== END 2017-04-08 06:52 | disposition home or self-care (01) ==
LOC: FTE 02:58
DX: K61.0 Anal abscess (principal)
CPT/HCPCS: 96372; 99284; J0696; J1885

== ENCOUNTER 2017-08-23 03:00 | Emergency (ER) | END 2017-08-23 05:03 | disposition home or self-care (01) ==

== ENCOUNTER 2018-04-11 16:36 | Emergency (ER) | END 2018-04-11 20:06 | disposition home or self-care (01) ==